=== PATIENT | female | born 1980 | race Caucasian/White ===

== ENCOUNTER → 2019-05-28 | Outpatient (CLI) | payer BC ==
[~2019-05-28] MED LIST: HYDR-1231 PO; HYDR-91 PO; LEVO75TA6 PO; LVT.112T PO; NITR-33 PO; ONDA8TAB13 PO; SULF-222 PO; TRIA1CAP4 PO
[2019-05-28 11:12] LABS: BUN/CREATININE RATIO 16; CALCIUM 9.8 MG/DL (8.5-10.1); CARBON DIOXIDE 26 MMOL/L (21-32); CHLORIDE 102 MMOL/L (98-107); CREATININE SERUM 0.88 MG/DL (0.60-1.30); GFR ESTIMATED > 60; GLUCOSE 87 MG/DL (70-105); POTASSIUM 4.2 MMOL/L (3.6-5.0); SODIUM 138 MMOL/L (135-145); URIC ACID 4.4 MG/DL (2.6-7.2)
--- NOTE | 2019-05-28 15:29 | Diagnostic Imaging Report ---
INDICATION: Kidney stones. TIME OF EXAM: 10:35 AM COMPARISON: Correlation is made with prior abdominal radiograph from 04/15/2014. FINDINGS: Calcific densities overlying the lower portion of the right renal shadow similar to prior exam. There is a questionable vague density overlying the left renal shadow. Calculus cannot be excluded. Pelvic calcifications are noted, similar to prior exam. Bowel gas pattern is unremarkable. IMPRESSION: Findings suggestive of bilateral nephrolithiasis. The appearance is similar to examination from 2014. Dictated by: Dictated on workstation # [id number]
== END ==
LOC: RAD 10:09
PROVIDERS: ATTEND Urology
DX: N20.0 Calculus of kidney (principal)
CPT/HCPCS: 36415; 74018; 80048; 84100; 84550

== ENCOUNTER → 2022-02-11 | Outpatient (CLI) | payer BC ==
--- NOTE | 2022-02-11 14:07 | Diagnostic Imaging Report ---
Indication: Routine screening. Comparison: No prior mammograms are available for comparison. This is a baseline study. 2-D and 3-D bilateral screening mammography was performed with CAD. Both breasts are heterogeneously dense, limiting the sensitivity of mammography. No mass or malignant-appearing microcalcifications are seen. Axillae are unremarkable. IMPRESSION: BI-RADS Category 1 No mammographic features suspicious for malignancy are identified. ACR BI-RADS Category 1: Negative. Result letter will be mailed to the patient. Note: At least 10% of breast cancer is not imaged by mammography. Dictated by: Dictated on workstation # [id number]
== END ==
LOC: RAD 11:00
PROVIDERS: ATTEND Obstetrics & Gynecology
DX: Z12.31 Encounter for screening mammogram for malignant neoplasm of breast (principal)
CPT/HCPCS: 77063; 77067

== ENCOUNTER → 2022-05-18 | Outpatient (CLI) | payer BC ==
--- NOTE | 2022-05-18 16:09 | Diagnostic Imaging Report ---
EXAMINATION: Abdomen 1 view HISTORY: Hematuria COMPARISON: 05/28/2019 FINDINGS: There are a cluster of calcifications projecting over the right kidney measuring up to 4 mm, unchanged from prior exam. Moderate amount of stool is present in the colon. No dilated bowel. There are phleboliths in the pelvis. IMPRESSION: 1. Cluster of calcifications projecting over the right kidney measuring up to 4 mm unchanged from prior exam likely representing stones. Dictated by: Dictated on workstation # [id number]
== END ==
LOC: RAD 14:40
PROVIDERS: ATTEND Nurse Practitioner Family
DX: N28.89 Other specified disorders of kidney and ureter (principal)
CPT/HCPCS: 74018